=== PATIENT | male | born 2000 | race Caucasian/White ===

== ENCOUNTER → 2024-07-18 06:22 | Day surgery (SDC) | payer OTHER, SELFPAY | LOC: GI 06:22 | PROVIDERS: ATTENDING PHYSICIAN Internal Medicine | DX: K62.5 Hemorrhage of anus and rectum (principal); K57.30 Diverticulosis of large intestine without perforation or abscess without bleeding; K59.00 Constipation, unspecified; K59.4 Anal spasm | CPT/HCPCS: 45378 ==